=== PATIENT | male | born 1960 | race Two or more races ===

== ENCOUNTER 2024-11-29 06:46 | Day surgery (SDC) | payer OTHER ==
[~2024-11-29 06:46] MED LIST: LEVO-T100 MCG PO; METFORMIN HCL500 M3 PO; SIMVASTATIN40 MG PO; TAMS0.4C PO; ZESTRIL5 MG PO
[2024-11-29] MEDS ORDERED: METRONIDAZOLE/SODIUM CHLORIDE 500 MG/100 ML PIGGYBACK IV ONE (09:19)
[2024-11-29] MEDS ORDERED: POVIDONE-IODINE 118 ML BOTT TOP ONE (09:20)
[2024-11-29] MEDS ORDERED: HEMOSTATIC MATRIX 1 KIT KIT TOP ONE (09:20)
[2024-11-29] MEDS ORDERED: BUPIVACAINE HCL/Mpf 0.5% 10ML VIAL ONE (09:20)
[2024-11-29] MEDS ORDERED: LIDOCAINE HCL 1%/EPINEPHRINE 20ML VIAL IJ ONE (09:20)
== END 2024-11-29 15:50 | disposition home or self-care (01) ==
LOC: CIR.AMB 06:46
PROVIDERS: ATTEND Colon & Rectal Surgery
DX: D37.5 Neoplasm of uncertain behavior of rectum (principal); D12.8 Benign neoplasm of rectum; Z88.0 Allergy status to penicillin